=== PATIENT | male | born 2000 | race Caucasian/White ===

== ENCOUNTER 2024-03-12 08:15 | Emergency (ER) | payer BC, OTHER ==
[~2024-03-12] VITALS: Ht 172.7 cm; Wt 91.0 kg
[2024-03-12 09:20] VITALS: BP 105/68; PULSE 70; RESP 16; TEMP 98.2; O2SAT 99
[2024-03-12] MEDS ORDERED: IBUP-1456 PO (09:44)
[2024-03-12] MEDS ORDERED: BACL10TA PO (09:44)
== END 2024-03-12 09:50 | disposition home or self-care (01) ==
LOC: ER 08:15
DX: S63.8X2A Sprain of other part of left wrist and hand, initial encounter (principal); M62.830 Muscle spasm of back; Z79.899 Other long term (current) drug therapy; V43.52XA Car driver injured in collision with other type car in traffic accident, initial encounter; Y93.I9 Activity, other involving external motion; Y92.89 Other specified places as the place of occurrence of the external cause; Y99.8 Other external cause status
CPT/HCPCS: 73130